=== PATIENT | female | born 1955 | race Caucasian/White ===

== ENCOUNTER 2023-11-19 07:26 | Inpatient (IN) | payer OTHER ==
[~2023-11-19] VITALS: Ht 170.2 cm; Wt 59.9 kg
[2023-11-19 08:33] LABS: Basophils # (auto) 0.1 10 ^3/uL (0-0.2); Basophils % (auto) 0.7 % (0.0-2.0); Eosinophils # (auto) 0.1 10 ^3/uL (0-0.8); Eosinophils % (auto) 0.4 % (0.0-7.0); Hematocrit 37.3 % (36.0-46.0); Hemoglobin 12.4 g/dL (12.2-16.2); Lymphocytes # (auto) 2.5 10 ^3/uL (0.4-5.4); Lymphocytes % (auto) 19.9 % (10.0-50.0); Mean Corpuscular Hemoglobin 32.1 pg (28.0-32.0); Mean Corpuscular Hgb Conc. 33.2 g/dL (32.0-36.0); Mean Corpuscular Volume 96.6 fL (80.0-100.0); Monocytes # (auto) 0.8 10 ^3/uL (0-1.3); Monocytes % (auto) 6.6 % (0.0-12.0); Neutrophils # (auto) 9.2 10 ^3/uL (1.6-8.6); Neutrophils % (auto) 72.4 % (37.0-80.0); Red Blood Cells 3.86 10^6/uL (4.0-5.20); Red Cell Distribution Width 12.5 % (11.8-14.3); White Blood Cell 12.6 10^3/uL (4.4-10.8)
[2023-11-19 08:42] LABS: Anion Gap 8 (5-15); Carbon Dioxide 25 mmol/L (20-30); Chloride 104 mmol/L (98-107); Potassium 4.4 mmol/L (3.5-5.1); Sodium 137 mmol/L (136-145)
[2023-11-19 08:43] LABS: Calcium 9.9 mg/dL (8.5-10.1)
[2023-11-19 08:48] LABS: BUN/Creatinine Ratio 10.4 (10.0-20.0); Blood Urea Nitrogen 15 mg/dL (9-23); Glucose 124 mg/dL (74-106)
[2023-11-19 13:00] VITALS: PULSE 102; RESP 20; O2SAT 97
[2023-11-19] MEDS: MORPHINE SULFATE INJ 2 MG/ml SYRG IV ONE (13:21)
[2023-11-19] MEDS: ONDANSETRON HCL 4 MG/2 ML VIAL IV ONE (13:21)
[2023-11-19] MEDS ORDERED: DOCUSATE SOD 100 MG CAP PO PRN (15:45)
[2023-11-19] MEDS ORDERED: ACETAMINOPHEN 325 MG TAB PO PRN (15:45)
[2023-11-19] MEDS ORDERED: ONDANSETRON HCL 4 MG/2 ML VIAL IV PRN (15:45)
[2023-11-19] MEDS ORDERED: PROP1TAB51 PO (16:15)
[2023-11-19] MEDS ORDERED: SUL500T PO (16:15)
[2023-11-19] MEDS ORDERED: ATOR40TA52 PO (16:15)
[2023-11-19] MEDS ORDERED: GAB100C PO (16:15)
[2023-11-19] MEDS ORDERED: DESV1TAB PO (16:15)
[2023-11-19] MEDS: SODIUM CHLORIDE 0.9% 1,000 ML IV ONE (16:41)
[2023-11-19] MEDS: metroNIDAZOLE 500MG/100ML 100 ML IV ONE (16:41)
[2023-11-19] MEDS: HYDROcodone-ACET 5/325MG TAB PO PRN (16:42)
[2023-11-19 17:05] LABS: Erythrocyte Sedimentation Rate 21 mm/hr (0-20)
[2023-11-19] MEDS: cefTRIAXone 1GM/50ML D5W 50 ML IV ONE (18:16)
[2023-11-19 20:00] VITALS: PULSE 93; RESP 20; O2SAT 100
[2023-11-19] MEDS: PROPRANOLOL HCL 20 MG TAB PO SCH (21:46)
[2023-11-19] MEDS: metroNIDAZOLE 500MG/100ML 100 ML IV SCH (21:51)
[2023-11-19] MEDS: GABAPENTIN 100 MG CAP PO SCH (21:59)
[2023-11-19] MEDS: sulfaSALAzine 500 MG TAB PO SCH (22:48)
[2023-11-19] MEDS: MORPHINE SULFATE INJ 2 MG/ml SYRG IV PRN (22:48)
[2023-11-20] VITALS (7 sets, daily range): BP systolic 90–120; BP diastolic 37–54; PULSE 75–94; RESP 16–18; TEMP 98–98.9; O2SAT 93–100
[2023-11-20 06:18] LABS: Hematocrit 30.6 % (36.0-46.0); Hemoglobin 10.2 g/dL (12.2-16.2); Mean Corpuscular Hemoglobin 33.2 pg (28.0-32.0); Mean Corpuscular Hgb Conc. 33.2 g/dL (32.0-36.0); Mean Corpuscular Volume 100.1 fL (80.0-100.0); Red Blood Cells 3.06 10^6/uL (4.0-5.20); Red Cell Distribution Width 13.2 % (11.8-14.3); White Blood Cell 11.4 10^3/uL (4.4-10.8)
[2023-11-20 06:25] LABS: Basophils % (manual) 0 (0.0-2.0); Blast Cells 0; Eosinophils % (manual) 0 (0-7); Metamyelocytes % 0; Myelocytes % 0; Promyelocytes % 0; Reactive Lymphocytes 0
[2023-11-20 06:46] LABS: Band Neutrophils % (manual) 1; Lymphocytes % (manual) 29 (10.0-50.0); Monocytes % (manual) 8 (0-12); Platelet Estimate Adequate
[2023-11-20 06:48] LABS: Alanine Aminotransferase 12 U/L (7-40); Albumin 3.5 g/dL (3.2-4.8); Alkaline Phosphatase 75 U/L (46-116); Anion Gap 6 (5-15); Aspartate Aminotransferase 26 U/L (13-40); BUN/Creatinine Ratio 8.9 (10.0-20.0); Blood Urea Nitrogen 15 mg/dL (9-23); Carbon Dioxide 23 mmol/L (20-30); Chloride 105 mmol/L (98-107); Glucose 90 mg/dL (74-106); Potassium 4.2 mmol/L (3.5-5.1); Sodium 134 mmol/L (136-145)
[2023-11-20 06:49] LABS: Bilirubin, Total 0.7 mg/dL (0.2-1.0)
[2023-11-20] MEDS: FLORASTOR (S. BOULARDII) 250 MG CAP PO SCH (08:53)
[2023-11-20] MEDS: cefTRIAXone 1GM/50ML D5W 50 ML IV SCH (08:53)
[2023-11-20] MEDS ORDERED: FOLI-119 PO (19:58)
[2023-11-20] MEDS ORDERED: CERT200K SC (19:58)
[2023-11-20] MEDS ORDERED: ACET-1080 PO (19:58)
[2023-11-20] MEDS ORDERED: MAGN241.4 PO (19:58)
[2023-11-20] MEDS ORDERED: SERT25TA84 PO (19:58)
[2023-11-20] MEDS ORDERED: CYAN100060 IM (19:58)
[2023-11-20] MEDS: ATORVASTATIN 20 MG TAB PO SCH (21:11)
[2023-11-21] VITALS (8 sets, daily range): BP systolic 93–121; BP diastolic 39–50; PULSE 78–103; RESP 17–18; TEMP 97.2–98.8; O2SAT 96–100
[2023-11-21] MEDS: metroNIDAZOLE 500 MG TAB PO SCH (16:52)
[2023-11-21 18:28] LABS: Urine Bacteria FEW /hpf (None Seen); Urine Blood TRACE /uL (Negative); Urine Clarity HAZY (Clear); Urine Color Yellow (Yellow); Urine Protein, UAD Negative (Negative); Urine Specific Gravity 1.006 (1.001-1.035); Urine Urobilinogen Normal (Negative); Urine WBC 25 /hpf (0 - 5)
[2023-11-22] VITALS (8 sets, daily range): BP systolic 66–130; BP diastolic 25–71; PULSE 69–126; RESP 16–18; TEMP 97.8–98.6; O2SAT 94–100
[2023-11-22 05:15] LABS: Basophils # (auto) 0 10 ^3/uL (0-0.2); Basophils % (auto) 0.4 % (0.0-2.0); Eosinophils # (auto) 0.3 10 ^3/uL (0-0.8); Eosinophils % (auto) 2.5 % (0.0-7.0); Hematocrit 27.1 % (36.0-46.0); Hemoglobin 9.3 g/dL (12.2-16.2); Lymphocytes # (auto) 3.1 10 ^3/uL (0.4-5.4); Lymphocytes % (auto) 27.4 % (10.0-50.0); Mean Corpuscular Hemoglobin 33.1 pg (28.0-32.0); Mean Corpuscular Hgb Conc. 34.3 g/dL (32.0-36.0); Mean Corpuscular Volume 96.6 fL (80.0-100.0); Monocytes # (auto) 1.1 10 ^3/uL (0-1.3); Monocytes % (auto) 9.4 % (0.0-12.0); Neutrophils # (auto) 6.8 10 ^3/uL (1.6-8.6); Neutrophils % (auto) 60.3 % (37.0-80.0); Nucleated Red Blood Cells % 0.1 %; Red Cell Distribution Width 12.7 % (11.8-14.3); White Blood Cell 11.3 10^3/uL (4.4-10.8)
[2023-11-22 05:28] LABS: Anion Gap 6 (5-15); Carbon Dioxide 24 mmol/L (20-30); Chloride 106 mmol/L (98-107); Potassium 3.2 mmol/L (3.5-5.1); Sodium 136 mmol/L (136-145)
[2023-11-22 05:29] LABS: Calcium 8.9 mg/dL (8.5-10.1)
[2023-11-22 05:34] LABS: BUN/Creatinine Ratio 8.7 (10.0-20.0); Blood Urea Nitrogen 11 mg/dL (9-23); Glucose 93 mg/dL (74-106); Triglycerides 50 mg/dL (< 150)
[2023-11-22 05:35] LABS: LDL Cholesterol 23 mg/dL (< 100)
[2023-11-22 05:36] LABS: Cholesterol 88 mg/dL (< 200); HDL Cholesterol 48 mg/dL (40-59)
[2023-11-22] MEDS: POTASSIUM EFFERVESENT TAB 25 MEQ PO ONE (09:40)
[2023-11-22 12:29] LABS: Hematocrit 28.5 % (36.0-46.0); Hemoglobin 9.4 g/dL (12.2-16.2)
[2023-11-23] VITALS (9 sets, daily range): BP systolic 108–127; BP diastolic 47–78; PULSE 67–115; RESP 12–52; TEMP 97.6–98.8; O2SAT 94–100
[2023-11-23] MEDS: SODIUM CHLORIDE 0.9% 1,000 ML IV SCH (11:00)
[2023-11-24] VITALS (7 sets, daily range): BP systolic 106–118; BP diastolic 38–51; PULSE 71–148; RESP 17–20; TEMP 98.1–98.8; O2SAT 92–100
[2023-11-25 01:00] VITALS: BP_SYST 100; BP_SYST 69; BP_SYST 72; BP_DIAS 33; BP_DIAS 45; PULSE 108; PULSE 122; PULSE 84; RESP 20; TEMP 98.6; O2SAT 95
[2023-11-25 05:00] VITALS: BP 1/82; PULSE 82; RESP 17; TEMP 98.3; O2SAT 96
[2023-11-25 08:00] VITALS: PULSE 74
[2023-11-25] MEDS ORDERED: CIPR-173 PO (08:21)
[2023-11-25] MEDS ORDERED: METR-344 PO (08:21)
[2023-11-25 08:41] VITALS: BP 101/56; PULSE 89; RESP 17; TEMP 98.2; O2SAT 93
[2023-11-25] MEDS ORDERED: LINE1TAB6 PO (11:15)
[2023-11-25 13:00] VITALS: BP 130/63; PULSE 82; RESP 19; TEMP 98.2; O2SAT 98
== END 2023-11-25 16:32 | disposition home or self-care (01) | DRG 871 ==
LOC: ER 07:26 → EDBD 07:26 → CENTRAL 15:57 → OVERFLOW 15:57 → CENTRAL 22:25 → TELE-CENTR 11-21 22:20
PROVIDERS: ADMIT Nurse Practitioner Family; ATTEND Family Medicine
DX: A41.02 Sepsis due to Methicillin resistant Staphylococcus aureus (principal); N17.0 Acute kidney failure with tubular necrosis; S42.291A Other displaced fracture of upper end of right humerus, initial encounter for closed fracture; N39.0 Urinary tract infection, site not specified; K50.90 Crohn's disease, unspecified, without complications; N18.2 Chronic kidney disease, stage 2 (mild); E78.5 Hyperlipidemia, unspecified; L40.9 Psoriasis, unspecified; I12.9 Hypertensive chronic kidney disease with stage 1 through stage 4 chronic kidney disease, or unspecified chronic kidney disease; F17.210 Nicotine dependence, cigarettes, uncomplicated; S51.811A Laceration without foreign body of right forearm, initial encounter; W18.39XA Other fall on same level, initial encounter; I71.40 Abdominal aortic aneurysm, without rupture, unspecified; E78.00 Pure hypercholesterolemia, unspecified; G43.909 Migraine, unspecified, not intractable, without status migrainosus; K21.9 Gastro-esophageal reflux disease without esophagitis; Z88.0 Allergy status to penicillin; Z71.6 Tobacco abuse counseling; Z83.3 Family history of diabetes mellitus; Z80.1 Family history of malignant neoplasm of trachea, bronchus and lung; I65.21 Occlusion and stenosis of right carotid artery; E86.0 Dehydration; Z80.49 Family history of malignant neoplasm of other genital organs; Z82.49 Family history of ischemic heart disease and other diseases of the circulatory system; Y93.89 Activity, other specified; Y92.89 Other specified places as the place of occurrence of the external cause; Y99.8 Other external cause status
CPT/HCPCS: 36415; 70450; 70551; 73030; 73070; 80048; 80053; 80061; 81001; 82270; 83036; 83735; 84443; 84484; 85007; 85014; 85018; 85025; 85027; 85048; 85379; 85652; 87086; 87088; 87177; 87186; 87493; 93005; 93306; 93886; 95819; 96365; 96366; 96367; 96375; 97110; 97116; 97163; 97530; G0378; J2405; J3490